=== PATIENT | male | born 1960 | race Caucasian/White ===

== ENCOUNTER 2018-04-19 14:03 | Emergency (ER) | payer MEDICAID ==
[~2018-04-19] VITALS: Ht 172.7 cm; Wt 74.1 kg
[~2018-04-19 14:03] MED LIST: HYDR-4383 PO; NEOM3.5O37 OP; NO HOME MEDS
[2018-04-19 14:09] VITALS: BP 174/120
[2018-04-19] MEDS ORDERED: ibuprofen tablet 400 MG TABLET PO ONE (14:35)
[2018-04-19] MEDS ORDERED: acetaminophen 325mg tablet PO ONE (14:35)
[2018-04-19] MEDS ORDERED: ACET-2615 PO (15:39)
[2018-04-19] MEDS ORDERED: IBUP-1985 PO (15:39)
== END 2018-04-19 15:53 | disposition home or self-care (01) ==
LOC: ER 14:04
DX: M54.2 Cervicalgia (principal); R20.2 Paresthesia of skin; M79.605 Pain in left leg; M79.604 Pain in right leg; R53.1 Weakness; Z79.2 Long term (current) use of antibiotics; Z79.899 Other long term (current) drug therapy
CPT/HCPCS: 72052; 99283

== ENCOUNTER 2018-06-12 03:05 | Emergency (ER) | payer MEDICAID ==
[~2018-06-12] VITALS: Ht 172.7 cm; Wt 74.0 kg
[~2018-06-12 03:05] MED LIST changes: +IBUP-1985 PO
[2018-06-12 03:10] VITALS: BP 126/85
[2018-06-12] MEDS ORDERED: ketorolac trometh inj. 60 MG/2 ML VIAL IM ONE (05:50)
[2018-06-12] MEDS ORDERED: DICL50TA8 PO (05:51)
[2018-06-12] MEDS ORDERED: ACET-1008 PO (06:04)
[2018-06-12] MEDS ORDERED: ACET-2119 PO (06:05)
== END 2018-06-12 06:14 | disposition home or self-care (01) ==
LOC: ER 03:06
DX: M79.602 Pain in left arm (principal); M79.601 Pain in right arm; R20.0 Anesthesia of skin; Z79.899 Other long term (current) drug therapy
CPT/HCPCS: 96372; 99283; J1885